=== PATIENT | female | born 1970 | race American Indian/Alaskan Native ===

== ENCOUNTER 2022-07-15 16:46 | Emergency (ER) | payer MEDICAID ==
[~2022-07-15] VITALS: Ht 154.9 cm; Wt 97.7 kg
[2022-07-15 16:59] VITALS: BP 143/99
[2022-07-15] MEDS ORDERED: SODIUM CHLORIDE 0.9% 1,000 ML IV ONE (17:00)
[2022-07-15 17:42] LABS: Eosinophils # (auto) 0.2 10 ^3/uL (0-0.8); Mean Corpuscular Hemoglobin 23.4 pg (28.0-32.0); Monocytes # (auto) 0.4 10 ^3/uL (0-1.3)
[2022-07-15 17:44] LABS: Basophils # (auto) 0 10 ^3/uL (0-0.2); Basophils % (auto) 0.7 % (0.0-2.0); Eosinophils % (auto) 3.6 % (0.0-7.0); Hematocrit 36.1 % (36.0-46.0); Hemoglobin 11.2 g/dL (12.2-16.2); Lymphocytes # (auto) 1.9 10 ^3/uL (0.4-5.4); Lymphocytes % (auto) 27.7 % (10.0-50.0); Mean Corpuscular Volume 75.5 fL (80.0-100.0); Monocytes % (auto) 5.6 % (0.0-12.0); Neutrophils # (auto) 4.3 10 ^3/uL (1.6-8.6); Neutrophils % (auto) 62.4 % (37.0-80.0); Red Blood Cells 4.78 10^6/uL (4.0-5.20); White Blood Cell 6.8 10^3/uL (4.4-10.8)
[2022-07-15 17:49] LABS: Albumin 3.1 g/dL (3.4-5.0); Calcium 8.3 mg/dL (8.5-10.1); Potassium 4.6 mmol/L (3.5-5.1)
[2022-07-15 17:50] LABS: Urine Bacteria NONE SEEN /hpf (None Seen); Urine Blood 3+ /uL (Negative); Urine Specific Gravity 1.019 (1.001-1.035); Urine WBC 42 /hpf (0 - 5)
[2022-07-15 17:50] LABS: Red Cell Distribution Width 28.8 % (11.8-14.3)
[2022-07-15 17:53] LABS: BUN/Creatinine Ratio 12.9; Bilirubin, Total 0.2 mg/dL (0.2-1.0); Total Protein 6.9 g/dL (6.4-8.2)
[2022-07-15] MEDS ORDERED: NITR-87 PO (19:49)
[2022-07-15] MEDS ORDERED: cefTRIAXone 1GM/50ML D5W 50 ML IV ONE (20:00)
== END 2022-07-15 21:07 | disposition home or self-care (01) ==
LOC: ER 16:46
DX: D21.9 Benign neoplasm of connective and other soft tissue, unspecified (principal); N93.9 Abnormal uterine and vaginal bleeding, unspecified; N39.0 Urinary tract infection, site not specified; Z88.0 Allergy status to penicillin
CPT/HCPCS: 36415; 76856; 80053; 81001; 84484; 85025; 96365; 99284; J0696; J7030